=== PATIENT | female | born 1950 | race Caucasian/White ===

== ENCOUNTER 2017-01-07 21:03 | Emergency (ER) | payer MEDICARE, OTHER ==
[~2017-01-07] VITALS: Ht 167.6 cm; Wt 55.0 kg
[~2017-01-07 21:03] MED LIST: ALPR0.5T99; AMIT100T6; CEPH500C3 PO; MSIR15 PO; VASO10TA8; WELL150T
[2017-01-07 21:04] VITALS: BP_SYST 151; PULSE 84; RESP 16; TEMP 98; O2SAT 99
[2017-01-07 21:31] VITALS: BP 151/66
== END 2017-01-07 22:44 | disposition left against medical advice (07) ==
LOC: NED 21:03
DX: R51 Headache (principal); R10.9 Unspecified abdominal pain; Z53.21 Procedure and treatment not carried out due to patient leaving prior to being seen by health care provider
CPT/HCPCS: 99281